=== PATIENT | male | born 2000 | race Caucasian/White ===

== ENCOUNTER 2019-08-31 11:31 | Emergency (ER) | payer OTHER ==
[~2019-08-31] VITALS: Ht 186 cm; Wt 67.6 kg
[2019-08-31 12:40] LABS: URINE BILIRUBIN NEGATIVE (Negative); URINE BLOOD NEGATIVE (Negative); URINE CLARITY CLEAR; URINE COLOR YELLOW; URINE GLUCOSE-RANDOM* NEGATIVE (Negative); URINE KETONES TRACE (Negative); URINE LEUKOCYTES-REFLEX NEGATIVE (Negative); URINE NITRITE-REFLEX NEGATIVE (Negative); URINE PROTEIN (DIPSTICK) NEGATIVE (Negative); URINE UROBILINOGEN 0.2 E.U./dl (0.2-1.0)
[2019-08-31] MEDS ORDERED: IBUPROFEN 800800 M1 PO (12:56)
[2019-08-31] MEDS ORDERED: TAMIFLU75 MG PO (12:56)
[2019-08-31] MEDS ORDERED: ONDANSETRON HCL4 M2 PO (12:56)
[2019-08-31 12:58] VITALS: BP 151/82
== END 2019-08-31 13:03 | disposition home or self-care (01) ==
LOC: ER 11:31
PROVIDERS: Physician Assistant
DX: J02.9 Acute pharyngitis, unspecified (principal); R11.2 Nausea with vomiting, unspecified; R05 Cough; R19.7 Diarrhea, unspecified; M54.6 Pain in thoracic spine; M25.511 Pain in right shoulder; M25.512 Pain in left shoulder; Z91.012 Allergy to eggs